=== PATIENT | female | born 1965 | race Caucasian/White ===

== ENCOUNTER 2017-06-29 09:58 | Emergency (ER) | payer OTHER ==
[~2017-06-29] VITALS: Ht 175.3 cm; Wt 56.2 kg
[~2017-06-29 09:58] MED LIST: NAPROSYN500 MG PO; ZANTAC150 MG PO
[2017-06-29] MEDS ORDERED: ATARAX,VISTARIL25 MG PO (11:26)
[2017-06-29 12:52] VITALS: BP 115/69
== END 2017-06-29 12:53 | disposition home or self-care (01) ==
LOC: EME 09:58
PROC: 3E0234Z Introduction of Serum, Toxoid and Vaccine into Muscle, Percutaneous Approach (ICD-10-PCS; principal; 2017-06-29)
DX: Z20.3 Contact with and (suspected) exposure to rabies (principal); Z23 Encounter for immunization; F41.9 Anxiety disorder, unspecified; I25.2 Old myocardial infarction; Z88.2 Allergy status to sulfonamides
CPT/HCPCS: 99281; 99284

== ENCOUNTER 2017-07-02 13:37 | Emergency (ER) | payer OTHER ==
[~2017-07-02] VITALS: Ht 175.3 cm; Wt 56.5 kg
[~2017-07-02 13:37] MED LIST changes: +ATARAX,VISTARIL25 MG PO
[2017-07-02 15:39] VITALS: BP 118/72
== END 2017-07-02 15:39 | disposition home or self-care (01) ==
LOC: EME 13:37
PROC: 3E0234Z Introduction of Serum, Toxoid and Vaccine into Muscle, Percutaneous Approach (ICD-10-PCS; principal; 2017-07-02)
DX: Z20.3 Contact with and (suspected) exposure to rabies (principal); Z23 Encounter for immunization; Z88.2 Allergy status to sulfonamides
CPT/HCPCS: 99281; 99284

== ENCOUNTER → 2017-11-12 | Outpatient (CLI) | payer OTHER ==
[~2017-11-12] VITALS: Ht 175.3 cm; Wt 55.4 kg
[~2017-11-12] MED LIST changes: +ESSENTIAL WOMA1 EAC1 PO; +LEVOTHYROXINE25 MCG PO; +MIRALAX17 GM PO
[2017-11-12 10:17] VITALS: BP 117/82
== END | disposition home or self-care (01) ==
LOC: IVINF 10:00
DX: M81.0 Age-related osteoporosis without current pathological fracture (principal)
CPT/HCPCS: 96365; J3489